=== PATIENT | female | born 1990 ===

== ENCOUNTER 2021-05-12 11:42 | Outpatient (REF) | payer MEDICAID, SELFPAY ==
[2021-05-12 21:01] LABS: HCT 40.7 % (36.0-46.0); HGB 12.9 g/dL (11.2-15.7); MCH 29.5 pg (27.0-33.0); MCHC 31.7 % (32.0-36.0); MCV 93.1 fL (80-95); MPV 10.4 fL (8.0-11.0); Platelet Count 322 10^3/uL (130-400); RBC 4.37 10^6/uL (3.93-5.22); RDW 12.2 % (11.7-14.6); RDW-SD 42.2 fL; WBC 6.23 10^3/uL (4.4-10.8)
[2021-05-12 21:16] LABS: Iron 75 ug/dL (50-170); Total Iron Binding Capacity 348 ug/dL (250-450); Transferrin Sat 22 % (15-50)
[2021-05-12 21:26] LABS: Anion Gap 9.9 mmol/L (3-11); BUN 12 mg/dL (7-18); CO2 29.1 mmol/L (21.0-32.0); CREATININE 0.7 mg/dL (0.55-1.02); Calcium 9.5 mg/dL (8.5-10.1); Chloride 101 mmol/L (98-107); Glucose 85 mg/dL (74-106); Potassium 4.5 mmol/L (3.5-5.1); Sodium 140 mmol/L (136-145); TSH (W/Ref FT4) 0.25 uIU/mL (0.36-3.74)
[2021-05-12 21:50] LABS: FREE T4 0.98 ng/dL (0.76-1.46)
[2021-05-13 05:53] LABS: Vitamin D 25 Total 54.2 ng/mL (30-100)
== END 2021-05-12 11:43 | disposition home or self-care (01) ==
LOC: NCHCN 11:42
PROVIDERS: Visit Provider Nurse Practitioner Family
DX: F32.9 Major depressive disorder, single episode, unspecified (principal); R53.83 Other fatigue; R00.2 Palpitations
CPT/HCPCS: 80048; 82306; 85027; 83540; 83550; 84439; 84443

== ENCOUNTER 2021-06-03 05:50 | Emergency (ER) | payer MEDICAID, SELFPAY ==
[2021-06-03] VITALS (23 sets, daily range): BP systolic 115–135; BP diastolic 64–89; PULSE 68–99; RESP 12–21; TEMP 36.2; O2SAT 99–100
--- NOTE | 2021-06-03 06:00 | RT.EKG_ITS ---
APPROVED REPORT Exam: Resting ECG Reason for Exam: palpitations Patient Location: E HR:90 bpm ECG Measurements Heart Rate 90 AXIS MT 140 P 88 QRSd 84 QRS 61 QT 489 T 57 QTc 600 Conclusion Sinus rhythm...normal P axis, V-rate 60- 99 Prolonged QT interval...QTc >495mS Physician: Rate 90, MT 140, QT 489, QTc 600. Sinus rhythm with a notable prolonged QT, inverted T wa ves present in V3. No STEMI. No epsilon wave or delta wave. No evidence of Brugada.
--- NOTE | 2021-06-03 06:08 | W.ED.GENAD ---
Discharge Plan Disposition Patient Disposition: HOME Condition: Good Discharge Details Clinical Impression: Prolonged QT syndrome Primary Care Provider: Yane Ramirez ED Provider: Monty Sosa Home Meds and New Rx's Prescriptions: New nadolol 40 mg tablet 40 mg PO DAILY Qty: 14 0RF Continued buspirone 5 mg Tablet 10 mg PO TID 0RF Discharge Instructions Instructions: Heart Palpitations (ED) Additional Instructions: At this time you have evidence of a prolonged QT syndrome. This can cause palpitations and also abnormal heart rhythms. Please take the medication nadolol as prescribed. This was recommended by the [facility] field counsel. Please follow-up closely with cardiology. You will be contacted for an appointment time. If you notice any worsening of your symptoms, or any new symptoms such as vomiting, diarrhea, fever, chills, shortness of breath, chest pain, numbness, weakness, or fainting , please return immediately to the emergency department for reevaluation. Please follow up with your primary care provider as soon as possible for reassessment and reevaluation. As always, it was a pleasure participating in your medical care today. Referrals: Alaina Mcclellan MD [ [facility] STAFF PHYSICIAN] - Yane Ramirez [Primary Care Provider] - Medical Decision Making This is a 31-year-old female with a past medical history of depression who is currently on buspirone and was started on 10 mg 3 times daily 3 days ago who presents today for evaluation of palpitations. Patient states that for the last month she has had intermittent episodes of palpitations. She has been on various antidepressant medications as of late. She states that tonight palpitations were somewhat worse than normal, lasting about 20 minutes, and feeling like her heart was beating abnormally. She otherwise denies any aggravating or relieving factors. She does admit to occasional palpitations that have been occurring at rest recently but denies any exertional palpitations or exertional syncope. She denies any family history of sudden cardiac , or cardiac issues. She denies any IV or illicit drug use. She does admit to recent cannabis use in the last 3 days. She denies any alcohol intake or excessive caffeine use. She did have a single cup of coffee this morning. No other complaints at this time. No other modifying factors. Physical exam is notably unremarkable, vital signs stable. Blood pressure stable. Differential includes intermittent PVCs, mild palpitations secondary to buspirone, or potential cardiac dysrhythmia or electrolyte abnormality. We will get basic labs, EKG, troponin, get a proBNP to evaluate for signs of cardiac strain, monitor closely and reassess. 6:25 AM EKG demonstrates prolonged QTC of 489, and a QTC of 600. Patient is unlikely from buspirone as this does not have significant QT prolonging components. 5 days ago the patient was on Topamax for a total of 2 days, this is unlikely to cause QT prolongation. Prior to that she was on Wellbutrin for 2 to 3 weeks, and this is unlikely to cause QT prolongation. Prior to that which was over a month ago she was on sertraline for a few days, and this is the only likely potential cause of QT prolongation however its temporal relation to her current symptoms is quite distant and so I suspect this is less likely to be the cause. Congenital prolonged QT syndrome and certainly on the differential. We will continue to monitor evaluate for electrolyte abnormalities and reassess. 8:08 AM Patient's laboratory work-up has returned relatively unremarkable, electrolytes demonstrate a slightly low potassium at 3.2 but I do not think this is the causative agent for prolonged QT. Patient does admit to recently getting over Covid 2 months ago, this may certainly have been a precipitating component as her palpitations started shortly thereafter. Troponin is normal, proBNP normal, thyroid function normal. We did contact [facility] and I discussed the case with Dr. Pina, he reviewed the EKG and agrees with the concern. He does not see need for immediate emergent admission at this time but does recommend close and prompt follow-up. I have asked that he schedule follow-up from [facility]'s perspective, and we will schedule prompt follow-up from an. Cardiology perspective as well to facilitate a speedy prompt follow-up. We will place a Holter monitor on here. [facility] does recommend starting the patient on 40 mg of nadolol daily. They recommended 2 week prescription, and prompt follow-up this week at which point they will likely increase the dose. I discussed all this with the patient, including recommendations for avoiding excessive caffeine, vigorous exercise, illicit drugs, and also discussed red flags which to return. I have extensively reviewed the treatment plan and discharge instructions with the patient. I have addressed all patient concerns at this time. The patient was made aware of what symptoms to monitor for that would warrant a return to the emergency department. Discussed the plan with the patient, they demonstrate verbal understanding and agreement with our assessment and plan at this time. The documentation in this chart was dictated using [employer] dictation software. Please excuse any dictation errors. EKG 6: 09 Rate 90, W[place] 140, QT 489, QTc 600. Sinus rhythm with a notable prolonged QT, inverted T waves present in V3. No STEMI. No epsilon wave or delta wave. No evidence of Brugada. HPI General Date/Time Provider Initiated Documentation: 06/03/21 05:52. HPI Narrative: This is a 31-year-old female with a past medical history of depression who is currently on buspirone and was started on 10 mg 3 times daily 3 days ago who presents today for evaluation of palpitations. Patient states that for the last month she has had intermittent episodes of palpitations. She has been on various antidepressant medications as of late. She states that tonight palpitations were somewhat worse than normal, lasting about 20 minutes, and feeling like her heart was beating abnormally. She otherwise denies any aggravating or relieving factors. She does admit to occasional palpitations that have been occurring at rest recently but denies any exertional palpitations or exertional syncope. She denies any family history of sudden cardiac , or cardiac issues. She denies any IV or illicit drug use. She does admit to recent cannabis use in the last 3 days. She denies any alcohol intake or excessive caffeine use. She did have a single cup of coffee this morning. No other complaints at this time. No other modifying factors. Related Data Home Medications Medication Instructions Recorded Confirmed buspirone 5 mg tablet 10 mg PO TID 06/03/21 06/03/21 nadolol 40 mg tablet 40 mg PO DAILY #14 tab 06/03/21 Previous Rx's Medication Instructions Recorded nadolol 40 mg tablet 40 mg PO DAILY #14 tab 06/03/21 Allergies Allergy/AdvReac Type Severity Reaction Status Date / Time No Known Allergies Allergy Unverified 06/03/21 06:31 General Stated Complaint: Palpitatns JENNIFER: 3 Review of Systems All systems reviewed & are unremarkable except as noted in HPI and below PFSH All Active Problems (Updated 06/03/21 @ 07:38 by Monty Sosa DO) Prolonged QT syndrome (Acute) Social History Smoking/Tobacco Use Status: Never Smoking risk assessment performed?: Yes Alcohol Intake: current Alcohol Intake frequency: holidays/special occasions only Drug use: Occasionally Substance use type: marijuana Do you feel safe at home: Yes Do you feel safe in your relationship?: Yes Exam Narrative Exam Narrative: 1.Const: Well-nourished, Well-developed, appearing stated age 2.Eyes: PERRL, no conjunctival injection, and symmetrical lids. 3.ENT: Atraumatic external nose and ears. Moist MM. Neck: Symmetric, trachea midline, No thyromegaly. 4.CVS: +S1/S2, No murmurs or gallops. Peripheral pulses 2+ and equal in all extremities. Brisk capillary refill in all extremities. 5.RESP: Unlabored respiratory effort. Clear to auscultation bilaterally. No wheezes rales or rhonchi 6.GI: Soft, Nontender/Nondistended, No hepatosplenomegaly. No guarding or rebound. 7.MSK: Normocephalic/Atraumatic, Extremities w/o deformity or ttp No cyanosis or clubbing, Normal movement of all extremities 8.Skin: Warm, Dry. No rashes or lesions. 9.Neuro: loop tender II-XII grossly intact. Sensation grossly intact, no focal neurologic deficits. 10.Psych: (AAO) x3. Appropriate mood and affect Course Vital Signs Vital signs: Vital Signs Temperature 36.2 C L 06/03/21 05:55 Pulse 90 06/03/21 05:55 Blood Pressure 135/89 06/03/21 05:55 Pulse Oximetry 100 06/03/21 05:55 Temperature 36.2 C L 06/03/21 05:55 Temperature Source Temporal Artery Scan 06/03/21 05:55 Pulse 90 06/03/21 05:55 Blood Pressure 135/89 06/03/21 05:55 Blood Pressure Position Sitting 06/03/21 05:55 Pulse Oximetry 100 06/03/21 05:55 Oxygen Delivery Method Room Air 06/03/21 05:55 Oxygen Flow Rate 0 06/03/21 05:55 Sign Out Sign Out Data: Sign Out Comment: Presents for palpitations, work-up shows prolonged QTC. Pending cardiology consultation. Patient does have mild hypokalemia. Last updated by Monty Sosa DO at 06/03/21 07:32
[2021-06-03 06:21] LABS: Abs Immature Grans 0.03 10^3/uL (0.0-0.06); Absolute Basophil Count 0.05 10^3/uL (0.0-0.2); Absolute Eosinophil Count 0.04 10^3/uL (0.0-0.7); Absolute Lymphocyte Count 1.27 10^3/uL (1.2-3.4); Absolute Neutrophil Count 4.46 10^3/uL (1.2-6.7); Basophils % 0.8; Eosinophils % 0.6; HGB 13.6 g/dL (11.2-15.7); Immature Grans % 0.5; Lymphocytes % 19.7; MCH 29.9 pg (27.0-33.0); MCHC 33.2 % (32.0-36.0); MCV 90.1 fL (80-95); MPV 9.5 fL (8.0-11.0); Monocytes % 9.3; Neutrophils % 69.1; Nucleated RBC 0 %; Platelet Count 325 10^3/uL (130-400); RBC 4.55 10^6/uL (3.93-5.22); RDW 12.2 % (11.7-14.6); RDW-SD 40.2 fL; WBC 6.45 10^3/uL (4.4-10.8)
[2021-06-03] MEDS: Normal Saline 500 ML IV (06:27)
[2021-06-03 06:43] LABS: ALT 14 U/L (14-59); AST 12 U/L (15-37); Albumin 4.1 g/dL (3.4-5.0); Alkaline Phosphatase 48 U/L (46-116); BUN 9 mg/dL (7-18); Bilirubin, Total 0.7 mg/dL (0.2-1.0); CREATININE 0.8 mg/dL (0.55-1.02); Calcium 8.9 mg/dL (8.5-10.1); Chloride 102 mmol/L (98-107); Glucose 118 mg/dL (74-106); NT-proBNP 27 pg/mL (<300); Potassium 3.2 mmol/L (3.5-5.1); Sodium 137 mmol/L (136-145); TSH (W/Ref FT4) 1.49 uIU/mL (0.36-3.74); Total Protein 7.5 g/dL (6.4-8.2); Troponin I < 50 ng/L (<or=60)
[2021-06-03] MEDS: Potassium Chloride 20 MEQ TABCR 40 MEQ PO (06:58)
--- NOTE | 2021-06-03 07:42 | NUR.NOTE ---
[facility] Cardiology Consult, prolonged QT syndrome STAT by next week p/Dr. Sosa request faxed
[2021-06-03] MEDS: Nadolol 40 MG TAB PO (07:53)
== END 2021-06-03 08:35 | disposition home or self-care (01) ==
PROVIDERS: Emergency Provider Student in an Organized Health Care Education/Training Program; PCP Nurse Practitioner Family
DX: I45.81 Long QT syndrome (principal)
CPT/HCPCS: 36415; 80053; 93005; 96360; 99284; 83735; 83880; 84443; 84484; 85025; 93010; 93225; 99283

== ENCOUNTER 2021-06-03 08:01 | Outpatient (RCR) | payer BC, MEDICAID, SELFPAY ==
--- NOTE | 2021-06-03 08:00 | HOLTER_ITS ---
APPROVED REPORT Conclusion This is a 48-hour Holter monitor ordered for prolonged QT interval Rhythm throughout was sinus with an average heart rate of 64. Minimum was 50, maximum 96 No ventricular ectopic beats were seen A total of 3 atrial premature beats were recorded There was no atrial fibrillation, no high-grade AV block, no pauses greater than 3 seconds Multiple patient symptoms were reported all of which corresponded to sinus rhythm
== END 2021-06-07 23:59 | disposition home or self-care (01) ==
LOC: RT 08:01
PROVIDERS: PCP Nurse Practitioner Family; Visit Provider Nurse Practitioner Family
DX: I45.81 Long QT syndrome (principal)
CPT/HCPCS: 93225; 93226

== ENCOUNTER 2021-10-29 16:51 | Outpatient (REF) | payer BC, MEDICAID, SELFPAY ==
--- NOTE | 2021-10-29 16:30 | PAPFT_PTH ---
PATIENT: Nereyda Villalobos LOC: [facility] U#:[id number] AGE/SX: 31/F ROOM: RE10/29/[address]: Yane Ramirez : 1990 BED: DIS: 10/29/2021 SPEC #: [id number] RECD: 10/29/21 18:18 STATUS: SERGE REQ #: [id number] DEONDRE: 10/29/21 16:[address]: Yane Ramirez DEPT: [facility] Cytology RECD BY: Ines Smith Tissues: 1 - CX/ENDOCX FOR PAP SMEARS Procedures: PAP THIN PREP/UVM Screening Comments: [id number] (UNSATISFACTORY FOR EVALUATION)
== END 2021-10-29 16:52 | disposition home or self-care (01) ==
LOC: NCHCN 16:51
PROVIDERS: PCP Nurse Practitioner Family; Visit Provider Nurse Practitioner Family
DX: Z12.4 Encounter for screening for malignant neoplasm of cervix (principal); Z01.419 Encounter for gynecological examination (general) (routine) without abnormal findings; R87.615 Unsatisfactory cytologic smear of cervix; Z00.00 Encounter for general adult medical examination without abnormal findings
CPT/HCPCS: 88142

== ENCOUNTER 2022-01-03 15:23 | Outpatient (REF) | payer BC, MEDICAID, SELFPAY ==
--- NOTE | 2022-01-03 09:00 | PAPFT_PTH ---
PATIENT: Nereyda Villalobos LOC: [facility]#:[id number] AGE/SX: 31/F ROOM: RE01/03/[address]: Larisa Story : 1990 BED: DIS: 01/03/2022 SPEC #: [id number] RECD: 01/03/22 17:58 STATUS: SERGE REQ #: [id number] DEONDRE: 01/03/22 09:[address]: Larisa Story DEPT: [facility] Cytology RECD BY: Ines Smith ENTERED: 01/03/22 17:58 SP TYPE: PAPFT OTHR DR: Yane Ramirez Tissues: 1 - CX/ENDOCX FOR PAP SMEARS Procedures: PAP THIN PREP/UVM Screening HPV DNA PROBE Comments: [id number]
== END 2022-01-03 15:24 | disposition home or self-care (01) ==
LOC: NCHCN 15:23
PROVIDERS: PCP Nurse Practitioner Family; Visit Provider Family Medicine
DX: Z12.4 Encounter for screening for malignant neoplasm of cervix (principal); Z11.51 Encounter for screening for human papillomavirus (HPV)
CPT/HCPCS: 88142; 87624